=== PATIENT | female | born 1965 | race Hispanic/Latino ===

== ENCOUNTER → 2018-12-12 | Outpatient (CLI) | payer MEDICARE ==
[~2018-12-12] MED LIST: ASPI-1012 PO; CARB100 PO; DULO60CA64 PO; ESOM40CA PO; HYDR-2132 PO; MELO-106 PO; MONT10TA24 PO; PRED5TAB PO
== END | disposition home or self-care (01) ==
LOC: RAH 13:32
PROVIDERS: ATTEND Orthopaedic Surgery
DX: M14.671 Charcot's joint, right ankle and foot (principal)
CPT/HCPCS: 73700